=== PATIENT | female | born 1965 | race Hispanic/Latino ===

== ENCOUNTER → 2018-11-24 | Outpatient (REF) | payer OTHER, SELFPAY ==
[2018-11-24 12:29] LABS: HEMATOCRIT 41.8 % (36.0-47.0); HEMOGLOBIN 14.7 g/dl (12.0-15.5); MEAN CORPUSCULAR HEMOGLOBIN 29.6 pg (27.0-33.0); MEAN CORPUSCULAR HGB CONC 35.2 g/dl (32.0-36.5); MEAN CORPUSCULAR VOLUME 84.3 fl (80.0-96.0); PLATELET COUNT, AUTOMATED 265 10^3/uL (150-450); RED BLOOD COUNT 4.96 10^6/uL (4.00-5.40); WHITE BLOOD COUNT 6.4 10^3/uL (4.0-10.0)
[2018-11-24 12:44] LABS: BLOOD UREA NITROGEN 13 MG/DL (7-18); CALCIUM LEVEL 8.9 MG/DL (8.5-10.1); CARBON DIOXIDE LEVEL 25 MEQ/L (21-32); CHLORIDE LEVEL 99 MEQ/L (98-107); CHOLESTEROL LEVEL 281 MG/DL (<200); CHOLESTEROL RISK RATIO 8.028 (<5); HDL CHOLESTEROL 35 MG/DL (>40); NON-HDL-C 246 MG/DL; POTASSIUM SERUM 3.9 MEQ/L (3.5-5.1); SODIUM LEVEL 133 MEQ/L (136-145); TRIGLYCERIDES LEVEL 668 MG/DL (<150)
[2018-11-24 13:07] LABS: GLUCOSE, FASTING 449 MG/DL (70-100)
[2018-11-24 13:37] LABS: ALBUMIN 2.9 GM/DL (3.2-5.2); ALT/SGPT 27 U/L (12-78); BILIRUBIN,DIRECT < 0.1 MG/DL (0.0-0.2); BILIRUBIN,TOTAL 0.1 MG/DL (0.2-1.0); TOTAL PROTEIN 6.8 GM/DL (6.4-8.2)
[2018-11-24 13:52] LABS: HEMOGLOBIN A1c 14.7 %
== END ==
LOC: M SFHCPLAZ 10:12
PROVIDERS: ATTEND Nurse Practitioner Family
DX: E11.9 Type 2 diabetes mellitus without complications (principal); Z13.220 Encounter for screening for lipoid disorders

== ENCOUNTER → 2019-03-18 | Outpatient (REF) | payer OTHER ==
[2019-03-18 13:29] LABS: BASO % 0.5 % (0.0-1.0); EOS # 0.4 10^3/uL (0.0-0.50); EOS % 6.1 % (0.0-3.0); HEMOGLOBIN 14.2 g/dl (12.0-15.5); LYMPH # 1.9 10^3/uL (1.5-4.5); LYMPH % 30.6 % (24.0-44.0); MEAN CORPUSCULAR HEMOGLOBIN 30.2 pg (27.0-33.0); MEAN CORPUSCULAR HGB CONC 34.6 g/dl (32.0-36.5); MEAN CORPUSCULAR VOLUME 87.2 fl (80.0-96.0); MONO # 0.4 10^3/uL (0.0-0.8); MONO % 6.4 % (0.0-5.0); NEUTROPHILS # 3.5 10^3/uL (1.8-7.7); NEUTROPHILS % 55.9 % (36.0-66.0); PLATELET COUNT, AUTOMATED 308 10^3/uL (150-450); WHITE BLOOD COUNT 6.3 10^3/uL (4.0-10.0)
[2019-03-18 14:05] LABS: ALT/SGPT 31 U/L (12-78); BILIRUBIN,TOTAL 0.2 MG/DL (0.2-1.0); BLOOD UREA NITROGEN 15 MG/DL (7-18); CALCIUM LEVEL 9.3 MG/DL (8.5-10.1); CARBON DIOXIDE LEVEL 27 MEQ/L (21-32); CHLORIDE LEVEL 100 MEQ/L (98-107); CHOLESTEROL LEVEL 256 MG/DL (<200); CHOLESTEROL RISK RATIO 7.111 (<5); CREATININE FOR GFR 1.12 MG/DL (0.55-1.30); GLUCOSE, FASTING 338 MG/DL (70-100); HDL CHOLESTEROL 36 MG/DL (>40); NON-HDL-C 220 MG/DL; POTASSIUM SERUM 4.7 MEQ/L (3.5-5.1); SODIUM LEVEL 133 MEQ/L (136-145); TOTAL PROTEIN 7.1 GM/DL (6.4-8.2); TRIGLYCERIDES LEVEL 700 MG/DL (<150)
[2019-03-18 14:12] LABS: HEMOGLOBIN A1c 10.6 %
== END ==
LOC: M SFHCPLAZ 09:48
PROVIDERS: ATTEND Nurse Practitioner Family
DX: E11.9 Type 2 diabetes mellitus without complications (principal); I10 Essential (primary) hypertension; E78.5 Hyperlipidemia, unspecified

== ENCOUNTER → 2019-08-30 | Outpatient (REF) | payer OTHER ==
[2019-08-30 12:16] LABS: BASO % 0.5 % (0.0-1.0); EOS # 0.3 10^3/uL (0.0-0.5); EOS % 3.3 % (0.0-3.0); HEMATOCRIT 41.7 % (36.0-47.0); HEMOGLOBIN 14.5 g/dl (12.0-15.5); LYMPH # 3.5 10^3/uL (1.5-5.0); LYMPH % 40.2 % (24.0-44.0); MEAN CORPUSCULAR HEMOGLOBIN 30.3 pg (27.0-33.0); MEAN CORPUSCULAR HGB CONC 34.8 g/dl (32.0-36.5); MEAN CORPUSCULAR VOLUME 87.1 fl (80.0-96.0); MONO # 0.6 10^3/uL (0.0-0.8); NEUTROPHILS # 4.2 10^3/uL (1.5-8.5); NEUTROPHILS % 48.5 % (36.0-66.0); PLATELET COUNT, AUTOMATED 323 10^3/uL (150-450); RED BLOOD COUNT 4.79 10^6/uL (4.00-5.40); WHITE BLOOD COUNT 8.7 10^3/uL (4.0-10.0)
[2019-08-30 12:35] LABS: HEMOGLOBIN A1c 13.5 %
[2019-08-30 13:18] LABS: BILIRUBIN,TOTAL 0.2 MG/DL (0.2-1.0); CALCIUM LEVEL 9.7 MG/DL (8.5-10.1); CREATININE FOR GFR 1.69 MG/DL (0.55-1.30); FREE T4 1.04 NG/DL (0.76-1.46); GLOMERULAR FILTRATION RATE 33.6 (>51); POTASSIUM SERUM 4.4 MEQ/L (3.5-5.1); THYROID STIMULATING HORMONE 13.1 uIU/ML (0.358-3.740); TOTAL PROTEIN 6.8 GM/DL (6.4-8.2)
[2019-08-30 13:25] LABS: CREATININE, URINE 36.6 MG/DL; MAU/CREAT RATIO 5983.6 MCG/MG (0.0-30.0)
== END ==
LOC: M SFHCPLAZ 09:45
PROVIDERS: ATTEND Nurse Practitioner Family
DX: E11.9 Type 2 diabetes mellitus without complications (principal); E78.5 Hyperlipidemia, unspecified

== ENCOUNTER → 2019-09-07 | Outpatient (REF) | payer OTHER ==
[2019-09-07 13:52] LABS: ALBUMIN 2.8 GM/DL (3.2-5.2); BLOOD UREA NITROGEN 20 MG/DL (7-18); CARBON DIOXIDE LEVEL 28 MEQ/L (21-32); CHLORIDE LEVEL 99 MEQ/L (98-107); CHOLESTEROL LEVEL 226 MG/DL (<200); CHOLESTEROL RISK RATIO 5.255 (<5); CREATININE FOR GFR 1.35 MG/DL (0.55-1.30); GLOMERULAR FILTRATION RATE 43.5 (>51); GLUCOSE, FASTING 280 MG/DL (70-100); HDL CHOLESTEROL 43 MG/DL (>40); NON-HDL-C 183 MG/DL; PHOSPHORUS LEVEL 3.2 MG/DL (2.5-4.9); POTASSIUM SERUM 4.2 MEQ/L (3.5-5.1); SODIUM LEVEL 136 MEQ/L (136-145); TRIGLYCERIDES LEVEL 722 MG/DL (<150)
== END ==
LOC: M SFHCPLAZ 11:36
PROVIDERS: ATTEND Nurse Practitioner Family
DX: N18.3 Chronic kidney disease, stage 3 (moderate) (principal); E78.5 Hyperlipidemia, unspecified

== ENCOUNTER → 2019-09-10 | Outpatient (CLI) | payer SELFPAY ==
--- NOTE | 2019-09-10 14:23 | REP ---
Eight views cervical spine: 09/10/2019. Indication: Neck pain. New comparison: None. Findings: There is straightening of the cervical lordosis which may be positional. There is no instability on the dynamic testing. There is no acute fracture, subluxation or dislocation. The prevertebral and additional paraspinal soft tissues are unremarkable. No erosive osseous lesion is detected. Impression: No acute osseous injury of the cervical spine. Electronically Signed by Renato Amin DO 09/10/2019 02:14 P
--- NOTE | 2019-09-10 14:33 | REP ---
Three views left shoulder: 09/10/2019. Indication: Left shoulder pain. Comparison: None. Findings: There is no acute fracture, subluxation or dislocation. No erosive osseous lesions are detected. The visualized lungs are clear. Impression: No acute osseous left shoulder injury. Electronically Signed by Renato Amin DO 09/10/2019 02:24 P
== END ==
LOC: M RAD 08:21
PROVIDERS: ATTEND Nurse Practitioner Family
DX: M25.512 Pain in left shoulder (principal)